=== PATIENT | male | born 1960 | race Caucasian/White ===

== ENCOUNTER → 2018-04-30 | Day surgery (SDC) | payer OTHER ==
[2018-04-27 16:19] LABS: BASOPHILS # (AUTO) 0.1 (0.0-0.1); BASOPHILS % 0.4 % (0.0-1.0); EOSINOPHILS # (AUTO) 0.2 (0.0-0.4); EOSINOPHILS % 1.5 % (0.0-6.0); HEMATOCRIT 48.9 % (38.2-49.6); HEMOGLOBIN 16.3 g/dL (14.0-18.0); LYMPHOCYTES # (AUTO) 2.2 (1.0-3.2); MEAN CORPUSCULAR HEMOGLOBIN 30.8 pg (28-32); MEAN CORPUSCULAR HGB CONC 33.3 g/dL (31-35); MEAN CORPUSCULAR VOLUME 92.4 fL (81-99); MONOCYTES # (AUTO) 0.9 (0.2-0.8); MONOCYTES % 7.3 % (4.4-11.3); NEUTROPHILS # (AUTO) 8.9 (2.1-6.9); NEUTROPHILS % 72.3 % (38.7-80.0); PLATELET COUNT 266 x10e3/uL (140-360); RED BLOOD COUNT 5.29 x10e6/uL (4.3-5.7); RED CELL DISTRIBUTION WIDTH 12.9 % (11.7-14.4)
[2018-04-27 16:38] LABS: ANION GAP 11.6 mmol/L (8-16); BLOOD UREA NITROGEN 11 mg/dL (7-26); BUN/CREATININE RATIO 13 (6-25); CALCIUM 9.5 mg/dL (8.4-10.2); CARBON DIOXIDE 29 mmol/L (22-29); CHLORIDE 101 mmol/L (98-107); CREATININE, SERUM 0.84 mg/dL (0.72-1.25); EST GLOMERULAR FILTRATION RATE > 60 ML/MIN (60-); GLUCOSE 86 mg/dL (74-118); POTASSIUM 3.6 mmol/L (3.5-5.1); SODIUM 138 mmol/L (136-145)
--- NOTE | 2018-04-27 16:41 | Diagnostic Imaging Report ---
EXAMINATION: PA and lateral views of the chest. COMPARISON: None CLINICAL HISTORY: Preoperative study for prostate biopsy DISCUSSION: The lungs are well-inflated. No focal airspace consolidation, pleural effusion, or pneumothorax. Cardiomediastinal contour and pulmonary vasculature are within normal limits. No acute osseous abnormality. IMPRESSION: No acute cardiopulmonary abnormalities. Signed by: Dr. Andrew Munguia M.D. on 04/27/2018 4:37 PM
[~2018-04-30] MED LIST: ANTIBIOTIC PO; AZOR 10-40 MG1 EACH PO; CEFTRIAXONE SOD 1 GM/NS 50 ML 50 ML IV ONE; FENTANYL CITRATE/PF 100MCG/2 ML INJ ONE; HYDRALAZINE HCL 20 MG/ML VIAL ONE; LIDOCAINE HCL 2% LOCAL INJ 5 ML SDV VIAL INJ ONE; MIDAZOLAM HCL 2 MG/2 ML VIAL ONE; PROPOFOL IV EMULSION 10 MG/ML 20 ML VIAL ONE
--- OUTSIDE RECORDS SUMMARY | 2018-04-30 05:23 | XMS REPORT | Clinical Summary ---
Author Author [facility] Address Unknown Phone Unavailable Care Team Providers Care Food Court Team Member Name Role Phone David Dc MD PCP Allergies No Known Allergies Medications End Date Status Medication Sig Dispensed Refills Start Date Active CIALIS 20 mg tablet 0 6 Active amlodipine-olmesartan Take 1 tablet 0 (LIGIA) 10-40 mg per by mouth tablet daily. Active Problems Not on file Encounters Care Team Description Date Type Specialty Bandar Roca MD Diverticulosis of large intestine without hemorrhage (Primary Dx); History of colon polyps 03/20/2018 Office Visit Gastroenterology after 04/29/2017 Family History Medical History Relation Name Comments Liver cancer Father Prostate cancer Father Relation Name Status Comments Father Mother Alive Social History Date Tobacco Use Types Packs/Day Years Used Current Every Day Smoker Cigarettes 2 Smokeless Tobacco: Former User Alcohol Use Drinks/Week oz/Week Comments Yes OCC Sex Assigned at Date Recorded Not on file Industry Job Start Date Occupation Not on file Not on file Not on file Travel End Travel History Travel Start No recent travel history available. Last Filed Vital Signs Time Taken Vital Sign Reading 03/20/2018 3:01 PM [employer] Blood Pressure 163/96 03/20/2018 3:01 PM [employer] Pulse 85 03/20/2018 3:01 PM [employer] Temperature 36.7 C (98.1 F) 03/20/2018 3:01 PM [employer] Respiratory Rate 16 - Oxygen Saturation - - Inhaled Oxygen - Concentration 03/20/2018 3:01 PM [employer] Weight 99.8 kg (220 lb) 03/20/2018 3:01 PM [employer] Height 170.2 cm (5' 7") 03/20/2018 3:01 PM [employer] Body Mass Index 34.46 Plan of Treatment Health Maintenance Due Date Last Done Comments SHINGLES VACCINES (#1) 2008 INFLUENZA VACCINE 09/24/2017 COLON CANCER SCREENING 02/11/2027 02/11/2017 Results Not on fileafter 04/29/2017 Insurance Payer Benefit Subscriber ID Type Phone Address Plan / Group CIGNA CIGNA OPEN xxxxxxxxxxx HMO ACCESS/NET WORK Advance Directives Patient has advance care planning documents on file. For more information, darren larsen contact: Renard Hayes [address] [place] [address]
--- OUTSIDE RECORDS SUMMARY | 2018-04-30 05:23 | XMS REPORT ---
Author Author [facility] Address Unknown Phone Unavailable Care Team Providers Care Entry Level Chemist Name Role Phone Osmin ZHONG Unavailable Unavailable Problems This patient has no known problems. Allergies, Adverse Reactions, Alerts This patient has no known allergies or adverse reactions. Medications This patient has no known medications. Results Test Description Test Time Test Comments Text Results Atomic Results Result Comments CHEST 2 VIEWS 2018-04-27 16:36:00 [place] [address] Patient Name: MONSE RUDOLPH MR #: [id number] : 1960 Age/Sex: 57/M Req #: [id number] [facility] Physician: Ordered by: FATOUMATA ZHONG MD Report #: [id number] Location: OR Room/Bed: Procedure: [id number] DX/CHEST 2 VIEWS Exam Date: 04/27/18 Exam Time: 1530 REPORT STATUS: Signed EXAMINATION: PA and lateral views of the chest. C OMPARISON: None CLINICAL HISTORY: Preoperative study for prostate biopsy DISCUSSION: The lungs are well-inflated. No focal airspace consolidation, pleural effusion, or pneumothorax. Cardiomediastinal contour and pulmonary vasculature are within normal limits. No acute osseous abnormality. IMPRESSION: No acute cardiopulmonary abnormalities. Signed by: Dr. Triny Suresh M.D. on 04/27/2018 4:37 PM Dictated By: TRINY SURESH MD 36 Transcribed By: KIKE on 04/27/181636 COPY TO: FATOUMATA ZHONG MD
[2018-04-30 08:20] VITALS: BP 138/86
--- NOTE | 2018-04-30 15:35 | Operative Report ---
DATE OF PROCEDURE: 04/30/2018 SURGEON: Kaushik Chandler MD PREOPERATIVE DIAGNOSIS: Elevated PSA. POSTOPERATIVE DIAGNOSIS: Elevated PSA. OPERATIVE PROCEDURE PERFORMED: Transrectal ultrasound of biopsy of the prostate. SURGEON: Kaushik Chandler MD. ANESTHESIA: MAC anesthesia. ESTIMATED BLOOD LOSS: Minimal. INDICATION: Mr. Vivek Ortega is a 57-year-old gentleman with history of an elevation of his PSA about 8. He has some nodularity palpable bilaterally on his examination. He presents for biopsy of his prostate. PROCEDURE IN DETAIL: The patient was brought into the operative room, placed in the supine position. After initiation of IV sedation, he was placed in the left lateral decubitus position and prepped and draped in the usual sterile fashion. A transrectal ultrasound was placed per rectum and the prostate was examined. The prostate was about 27 cc in total volume. There were no obvious hypoechoic lesions noted. A total of 12 biopsies were obtained in a standard fashion from the right and left side to the prostate and from the basement and apex of the gland. These were sent to pathology as 12 separate specimens. He was cleaned and returned to supine position. Anesthesia was reversed and he was transferred to the bed and taken to the postanesthesia care unit in good condition. Of note, the needle and instrument count were correct at the conclusion of the case. Kaushik Chandler MD HLW/MODL /[id number]
== END | disposition home or self-care (01) ==
LOC: OR 05:20
PROVIDERS: ATTEND Urology
DX: R97.20 Elevated prostate specific antigen [PSA] (principal); N41.0 Acute prostatitis; N41.1 Chronic prostatitis; I10 Essential (primary) hypertension; F17.210 Nicotine dependence, cigarettes, uncomplicated; Z01.810 Encounter for preprocedural cardiovascular examination; Z01.812 Encounter for preprocedural laboratory examination; Z01.818 Encounter for other preprocedural examination; Z68.34 Body mass index [BMI] 34.0-34.9, adult
CPT/HCPCS: 36415; 55700; 71046; 76872; 80048; 85025; 88305; 93005; J0360; J0696; J2001; J2250; J2704; 76998

== ENCOUNTER → 2018-10-22 | Day surgery (SDC) | payer OTHER ==
[2018-10-19 10:29] LABS: BASOPHILS # (AUTO) 0.1 (0.0-0.1); BASOPHILS % 0.7 % (0.0-1.0); EOSINOPHILS # (AUTO) 0.6 (0.0-0.4); EOSINOPHILS % 5.6 % (0.0-6.0); HEMATOCRIT 47.6 % (38.2-49.6); HEMOGLOBIN 15.9 g/dL (14.0-18.0); LYMPHOCYTES # (AUTO) 2.1 (1.0-3.2); LYMPHOCYTES % 20.8 % (18.0-39.1); MEAN CORPUSCULAR HEMOGLOBIN 31.2 pg (28-32); MEAN CORPUSCULAR HGB CONC 33.4 g/dL (31-35); MEAN CORPUSCULAR VOLUME 93.5 fL (81-99); MONOCYTES # (AUTO) 0.8 (0.2-0.8); MONOCYTES % 7.9 % (4.4-11.3); NEUTROPHILS # (AUTO) 6.6 (2.1-6.9); NEUTROPHILS % 64.5 % (38.7-80.0); PLATELET COUNT 235 x10e3/uL (140-360); RED BLOOD COUNT 5.09 x10e6/uL (4.3-5.7); RED CELL DISTRIBUTION WIDTH 12.8 % (11.7-14.4)
[~2018-10-22] MED LIST changes: +CIALIS20 MG PO; -FENTANYL CITRATE/PF 100MCG/2 ML INJ ONE; -HYDRALAZINE HCL 20 MG/ML VIAL ONE; -LIDOCAINE HCL 2% LOCAL INJ 5 ML SDV VIAL INJ ONE; -MIDAZOLAM HCL 2 MG/2 ML VIAL ONE
--- OUTSIDE RECORDS SUMMARY | 2018-10-22 07:39 | XMS REPORT | Clinical Summary ---
Author Author [facility] Address Unknown Phone Unavailable Care Team Providers Care Net Wpf Developer Name Role Phone David Dc MD PCP [...] colon polyps 03/20/2018 Office Visit Gastroenterology after 10/21/2017 Family History Medical History Relation Name Comments Liver cancer Father Prostate cancer Father Relation Name Status Comments Father Mother Alive Social History Date Tobacco Use Types Packs/Day Years Used Current Every Day Smoker Cigarettes 2 Smokeless Tobacco: Former User Drinks/Week oz/Week Comments Alcohol Use OCC Yes Sex Assigned at Date Recorded Not on file Industry Job Start Date Occupation Not on file Not on file Not on file Travel End Travel History Travel Start No recent travel history available. Last Filed Vital Signs Reading Time Taken Comments Vital Sign 163/96 03/20/2018 3:01 PM [employer] Blood Pressure 85 03/20/2018 3:01 PM [employer] Pulse 36.7 C (98.1 F) 03/20/2018 3:01 PM [employer] Temperature 16 03/20/2018 3:01 PM [employer] Respiratory Rate - - Oxygen Saturation - - Inhaled Oxygen Concentration 99.8 kg (220 lb) 03/20/2018 3:01 PM [employer] Weight 170.2 cm (5' 7") 03/20/2018 3:01 PM [employer] TE[employer] Height 34.46 03/20/2018 3:01 PM [employer] Body Mass Index Plan of Treatment Health Maintenance Due Date Last Done Comments COLONOSCOPY SCREENING 2008 SHINGLES VACCINES (#1) 2008 INFLUENZA VACCINE 09/24/2018 Results Not on fileafter 10/21/2017 Insurance Type Payer Benefit Subscriber ID Effective Phone Address Plan / Dates Group HMO CIGKRISTY CIGKRISTY OPEN xxxxxxxxxxx [id number] ACCESS/NET resent WORK Advance Directives For more information, please contact: [phone] Patient Photographer Motion Picture Explanation Type Date Recorded Advance Directives, Living Will and Medical Power of K 9 Police Officer
[2018-10-22 11:00] VITALS: BP 151/99
--- NOTE | 2018-10-22 13:55 | Operative Report ---
DATE OF PROCEDURE: 10/22/2018 SURGEON: Kaushik Chandler MD PREOPERATIVE DIAGNOSIS: Elevated PSA. POSTOPERATIVE DIAGNOSIS: Elevated PSA. OPERATIVE PROCEDURE PERFORMED: Transrectal ultrasound biopsy of prostate. ANESTHESIA: MAC. ESTIMATED BLOOD LOSS: Minimal. INDICATIONS: Mr. Vivek Ortega is a 57-year-old gentleman with history of rise of his PSA from 6 to 11. He now presents for potential diagnosis and management of this problem. PROCEDURE IN DETAIL: The patient was brought in the operative room, placed in the left lateral decubitus position. After administration of MAC anesthesia, he was prepped in the usual fashion. On rectal examination, he has a moderate-sized prostate with moderate induration bilaterally, but no palpable focal nodules. Transrectal ultrasonography revealed the gland to be approximately 59 mL in volume. There is a midgland hypoechoic region noted on both sides and some calcifications noted on the left peripheral zone. There was also a moderate postvoid residual appreciated. Twelve biopsies were taken in the standard fashion. All of the needle and biopsies, two specimens were sent each. There was mild bleeding noted at the end of the procedure. After this was noted to stop with local pressure. The patient was returned to supine position and anesthesia was reversed. He was transferred to a bed and taken to the postanesthesia care unit in good condition. Of note, the needle and instrument counts were correct at the conclusion of the case. Kaushik Chandler MD HLW/MODL /[id number]
--- NOTE | 2018-10-23 09:58 | Diagnostic Imaging Report ---
Transrectal ultrasound of the prostate, ultrasound guidance. TECHNIQUE: Sonographic guidance was provided to to Dr. Kaushik Chandler for the purposes of a transrectal prostate biopsy. HISTORY: Elevated PSA FINDINGS: The gland size measures 4.8 x 5.6 x 4.2 cm. Prostate volume is 59.8 cubic cm. The peripheral zone is homogeneous without focal nodules. The transition zone demonstrates several BPH nodules. IMPRESSION: As above. Signed by: Dr. Chago Nascimento MD on 10/23/2018 9:55 AM
== END | disposition home or self-care (01) ==
LOC: OR 07:25
PROVIDERS: ATTEND Urology
DX: R97.20 Elevated prostate specific antigen [PSA] (principal); Z01.812 Encounter for preprocedural laboratory examination; F17.210 Nicotine dependence, cigarettes, uncomplicated; K21.9 Gastro-esophageal reflux disease without esophagitis; J45.909 Unspecified asthma, uncomplicated; I10 Essential (primary) hypertension
CPT/HCPCS: 36415; 55700; 76872; 76998; 85025; 88305; 93005; J0696; J2704